=== PATIENT | male | born 2000 | race Caucasian/White ===

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

== ENCOUNTER 2022-02-21 17:11 | Outpatient (CLI) | payer OTHER, SELFPAY ==
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
== END 2022-02-21 17:12 | disposition home or self-care (01) ==
PROVIDERS: PCP Emergency Medicine; Visit Provider Emergency Medicine
DX: S62.622D Displaced fracture of middle phalanx of right middle finger, subsequent encounter for fracture with routine healing (principal); X58.XXXD Exposure to other specified factors, subsequent encounter
CPT/HCPCS: 73140

== ENCOUNTER 2022-09-05 10:37 | Emergency (ER) | payer OTHER, SELFPAY ==
--- NOTE | ~2022-09-05 | XR_ITS ---
Right Hand Technique: PA, oblique, and lateral views were obtained. Clinical History: Pain COMPARISON: 02/21/2022 Findings: No acute fracture or dislocation is seen. Fourth metacarpal shaft screws are stable from pr ior exam. Osseous alignment is anatomic. Joint spaces are preserved. Soft tissues are unremarkable. Impression: No acute abnormality. Stable fourth metacarpal shaft screws. Reviewed, dictated and finalized at location . AVER SET UP OPERATOR Impression: No acute abnormality. Stable fourth metacarpal shaft screws.
[2022-09-05 11:02] VITALS: BP 127/68; PULSE 61; RESP 16; TEMP 36.2; O2SAT 100
--- NOTE | 2022-09-05 11:37 | ED.UPPEXIN ---
HPI - Extremity Injury (Upper) General Chief Complaint: Extremity Injury, Upper Stated Complaint: rt hand injury Time Seen by Provider: 09/05/22 11:31 Source: patient Mode of arrival: ambulatory Limitations: no limitations History of Present Illness HPI narrative: Patient presents today complaining of an injury to his right hand 2 weeks ago while snowboarding. States he fell onto outstretched hand and has intermittent pain in the hand, mostly when he uses it to play basketball or drive. Denies numbness or tingling in the hand or fingers. Currently rates his pain 0/10 and has tried no medication for pain prior to arrival. He has had a previous surgery of the affected hand. Related Data Home Medications Medication Instructions Recorded Confirmed No Home Medications 02/19/22 09/05/22 Allergies Allergy/AdvReac Type Severity Reaction Status Date / Time No Known Allergies Allergy Unverified 09/05/22 11:14 Review of Systems Review of Systems: CONSTITUTIONAL: Denies body aches, fever, chills, or sweats. EYES: Denies visual changes, redness, or discharge. ENT: Denies rhinorrhea, congestion, sore throat, or otalgia. CARDIOVASCULAR: Denies chest pain, palpitations, or edema. RESPIRATORY: Denies cough or dyspnea. GASTROINTESTINAL: Denies abdominal pain, nausea, vomiting, or diarrhea. GENITOURINARY: Denies dysuria or hematuria. SKIN: Denies rash, itching, or wounds. MUSCULOSKELETAL: Denies back pain.+ right hand pain NEUROLOGIC: Denies headache, numbness, tingling, or weakness. PSYCH: Denies depression or anxiety. [facility] Past Medical History Medical History (Updated 09/05/22 @ 11:42 by Erika Wilcox, DOE, ASHLEY) ADHD Hernia (~2010) Undescended testicle (~2010) Surgical History Surgical History (Updated 09/05/22 @ 11:38 by Erika Wilcox, DOE, ASHLEY) H/O hand surgery Family History Family History Father Neuropathy Sibling Asthma ADHD Social History Social History Smoking status: Never smoker Alcohol intake: never Substance use: never Substance use type: does not use Spiritual care concerns: No Comments At time of signature, I have reviewed and agree with nursing past medical, surgical, social and family history unless otherwise noted. Please see nursing chart for further information. There is no relevant family history pertinent to the presenting complaint Exam Narrative: GENERAL: Well-appearing, well-nourished, and in no acute distress. HEAD: Normocephalic, atraumatic. EYES: EOMI. No redness or drainage. Conjunctivae normal. ENT: Mucous membranes pink and moist. NECK: Normal AROM. CHEST: No respiratory distress. EXTREMITIES: Right hand: Patient localizes pain around his previous surgical scar overlying the 4th metacarpal. No erythema or edema noted. Patient has full range of motion of the fingers. No pain with palpation. Distal sensation intact. Capillary refill normal. Radial pulse normal.. SKIN: Warm, dry, no rash. Capillary refill normal. Normal skin turgor. NEURO: No focal deficits. Alert and oriented x3. Gait steady. PSYCH: Normal affect. No signs of depression or anxiety. Course Course Level of Care: Express Care Visit Vital Signs Vital signs: Vital Signs Temperature 97.2 F L 09/05/22 11:02 Pulse Rate 61 09/05/22 11:02 Respiratory Rate 16 09/05/22 11:02 Blood Pressure 127/68 09/05/22 11:02 Pulse Oximetry 100 09/05/22 11:02 Oxygen Delivery Room Air 09/05/22 11:02 Temperature 97.2 F L 09/05/22 11:02 Pulse Rate 61 09/05/22 11:02 Respiratory Rate 16 09/05/22 11:02 Blood Pressure 127/68 09/05/22 11:02 Pulse Oximetry 100 09/05/22 11:02 Oxygen Delivery Room Air 09/05/22 11:02 Reviewed. Pt has been instructed to follow up with his PCP regarding his elevated blood pressure today. MDM - Extremity
== END 2022-09-05 11:45 | disposition home or self-care (01) ==
PROVIDERS: Emergency Provider Nurse Practitioner; PCP Emergency Medicine
DX: S63.91XA Sprain of unspecified part of right wrist and hand, initial encounter (principal); W19.XXXA Unspecified fall, initial encounter; Y93.23 Activity, snow (alpine) (downhill) skiing, snowboarding, sledding, tobogganing and snow tubing
CPT/HCPCS: 73130; 99213; G0463